=== PATIENT | male | born 1965 | race Native Hawaiian/Other Pacific Islander ===

== ENCOUNTER 2024-01-05 11:32 | Inpatient (IN) | payer OTHER ==
[2024-01-05 12:15] VITALS: BMI 31.8
[2024-01-05] MEDS ORDERED: MAG HYDROX/AL HYDROX/SIMETH 30 ML UNIT-DOSE CUP PO PRN (14:54)
[2024-01-05] MEDS ORDERED: POLYETHYLENE GLYCOL (HEALTHYLAX) 3350 17 GM PACKET PO PRN (14:54)
[2024-01-05] MEDS ORDERED: NALOXONE (NARCAN) HCL 4 MG/0.1 ML SPRAY NS PRN (14:54)
[2024-01-05] MEDS ORDERED: BENZOCAINE/MENTHOL (CHLORASEPTIC ) LOZENGE MM PRN (14:54)
[2024-01-05] MEDS ORDERED: ONDANSETRON *ODT* 4 MG TABLET SL PRN (14:54)
[2024-01-05] MEDS ORDERED: MAGNESIUM HYDROX 2400MG/30ML ORAL SUSPENSION 30 ML CUP PO PRN (14:54)
[2024-01-05] MEDS ORDERED: IBUPROFEN 400 MG TABLET (FP) PO PRN (14:54)
[2024-01-05] MEDS ORDERED: guaiFENesin 600 MG TABLET.ER (FP) PO PRN (14:54)
[2024-01-05] MEDS ORDERED: NALOXONE HCL 0.4 MG/ML VIAL IM PRN (14:54)
[2024-01-05] MEDS ORDERED: IBUPROFEN 600 MG TABLET (FP) PO PRN (14:54)
[2024-01-05] MEDS ORDERED: BISMUTH SUBSALICYLATE 524 MG/30 ML PO PRN (14:54)
[2024-01-05] MEDS ORDERED: LOPERAMIDE HCL 2 MG CAPSULE PO PRN (14:54)
[2024-01-05] MEDS ORDERED: BENZONATATE 200 MG CAPSULE PO PRN (14:54)
[2024-01-05] MEDS ORDERED: DICYCLOMINE HCL 10 MG CAPSULE PO PRN (14:54)
[2024-01-05] MEDS ORDERED: cloNIDine HCL 0.1 MG TABLET PO PRN (14:59)
[2024-01-05] MEDS ORDERED: ALBUTEROL SO4 HFA INHALER IH PRN (15:02)
[2024-01-05] MEDS: methaDONE HCL 10 MG TABLET (FOR DETOX USE ONLY) PO ONE (15:25)
[2024-01-05] MEDS: chlordiazePOXIDE HCL 25 MG CAPSULE PO PRN (18:02)
[2024-01-05] MEDS: chlordiazePOXIDE HCL 25 MG CAPSULE PO SCH (18:02)
[2024-01-05] MEDS: THIAMINE 100 MG TABLET PO SCH (22:55)
[2024-01-05] MEDS: MELATONIN 5 MG TABLETS PO SCH (23:05)
[2024-01-06] MEDS: LEVOTHYROXINE NA 125 MCG TABLET (FP) PO SCH (06:26)
[2024-01-06] MEDS ORDERED: CELECOXIB 100 MG CAPSULE PO PRN (09:26)
[2024-01-06] MEDS ORDERED: ALBUTEROL SO4 HFA INHALER IH PRN (09:26)
[2024-01-06] MEDS: PRENATAL VITAMINS W/ FOLIC ACID TABLET (FP) PO SCH (10:36)
[2024-01-06] MEDS: NICOTINE 21 MG/24 HOURS TOPICAL PATCH TD SCH (10:36)
[2024-01-06 10:42] LABS: HEMATOCRIT 30.5 % (35.4-49); HEMOGLOBIN 10.4 GM/dL (11.7-16.9); MCH 30.6 pg (25.7-33.7); MCHC 34.2 g/dl (32.0-35.9); MEAN CELL VOLUME 89.4 fl (80-96); MEAN PLT VOLUME 7.3 fl (7.5-11.1); PLATELET COUNT 331 10^3/uL (134-434); RBC 3.41 M/mm3 (4.00-5.60); RDW 16.4 % (11.9-15.9); WHITE BLOOD COUNT 7.3 K/mm3 (4.0-10.0)
[2024-01-06 10:46] LABS: POTASSIUM 4.7 mmol/L (3.5-5.1)
[2024-01-06 10:52] LABS: ALBUMIN 2.6 g/dl (3.4-5.0); BLOOD UREA NITROGEN 12.4 mg/dL (7-18); CALCIUM 8.4 mg/dL (8.5-10.1)
[2024-01-06 10:55] LABS: CREATININE 0.9 mg/dL (0.55-1.3)
[2024-01-06 10:57] LABS: BILIRUBIN,TOTAL 0.3 mg/dL (0.2-1); TOT PROT 6.6 g/dl (6.4-8.2)
[2024-01-06] MEDS: TIOTROPIUM BROMIDE 2.5 MCG (SPIRIVA) RESPIMAT INHALER IH SCH (11:23)
[2024-01-06] MEDS: GABAPENTIN 100 MG CAPSULE PO SCH (13:26)
[2024-01-06] MEDS: RIFAXIMIN 550 MG TABLET PO SCH (22:53)
[2024-01-07] MEDS: ACETAMINOPHEN 325 MG TABLET (FP) PO PRN (02:27)
[2024-01-07] MEDS: hydrOXYzine PAMOATE 25 MG CAPSULE (FP) PO PRN (02:27)
[2024-01-07] MEDS: METHOCARBAMOL 500 MG TABLET PO PRN (02:27)
[2024-01-07] MEDS: chlordiazePOXIDE HCL 25 MG CAPSULE PO SCH (05:47)
[2024-01-07] MEDS: CELECOXIB 100 MG CAPSULE PO PRN (09:34)
[2024-01-07] MEDS: FUROSEMIDE 40 MG TABLET (FP) PO SCH (09:34)
[2024-01-07] MEDS ORDERED: methaDONE HCL 10 MG TABLET (FOR DETOX USE ONLY) PO ONE (10:00)
[2024-01-07] MEDS ORDERED: methaDONE HCL 10 MG TABLET PO ONE (10:00)
[2024-01-07] MEDS: BACITRACIN 0.9 GM PACKET TP ONE (13:38)
[2024-01-07] MEDS: LACTULOSE 20 GM/30 ML UDC (FOR ORAL USE ONLY) PO SCH (18:10)
[2024-01-07] MEDS: traZODone HCL 50 MG TABLET (FP) PO SCH (22:42)
[2024-01-07] MEDS: BACITRACIN 0.9 GM PACKET TP SCH (22:43)
[2024-01-08] MEDS ORDERED: chlordiazePOXIDE HCL 10 MG CAPSULE PO PRN
[2024-01-08] MEDS: chlordiazePOXIDE HCL 10 MG CAPSULE PO SCH (05:44)
[2024-01-08] MEDS ORDERED: methaDONE HCL 10 MG TABLET PO ONE ×2 (10:00)
[2024-01-09] MEDS: chlordiazePOXIDE HCL 10 MG CAPSULE PO SCH (06:00)
[2024-01-09] MEDS: LEVOTHYROXINE 25 MCG, LEVOTHYROXINE 100 MCG PO SCH (06:18)
[2024-01-09] MEDS ORDERED: methaDONE HCL 10 MG TABLET (FOR DETOX USE ONLY) PO ONE (10:00)
[2024-01-09] MEDS ORDERED: methaDONE HCL 10 MG TABLET PO ONE (10:00)
[2024-01-09 18:30] VITALS: BP 112/68; PULSE 98; RESP 17; TEMP 97.8
[2024-01-10] MEDS ORDERED: chlordiazePOXIDE HCL 10 MG CAPSULE PO ONE (05:00)
[2024-01-10] MEDS ORDERED: methaDONE HCL 10 MG TABLET PO ONE (10:00)
== END 2024-01-10 01:53 | disposition short-term general hospital (02) | DRG 897 ==
LOC: YASAS 11:32 → Y6N 14:16
PROVIDERS: ADMIT Allergy & Immunology; ATTEND Surgery
PROC: HZ2ZZZZ Detoxification Services for Substance Abuse Treatment (ICD-10-PCS; principal; 2024-01-05)
DX: F11.23 Opioid dependence with withdrawal (principal); F14.20 Cocaine dependence, uncomplicated; Z59.00 Homelessness unspecified; F10.230 Alcohol dependence with withdrawal, uncomplicated; F12.20 Cannabis dependence, uncomplicated; F17.210 Nicotine dependence, cigarettes, uncomplicated; F43.10 Post-traumatic stress disorder, unspecified; F25.1 Schizoaffective disorder, depressive type; I25.10 Atherosclerotic heart disease of native coronary artery without angina pectoris; I25.2 Old myocardial infarction; J44.9 Chronic obstructive pulmonary disease, unspecified; E03.9 Hypothyroidism, unspecified; R42 Dizziness and giddiness; G56.01 Carpal tunnel syndrome, right upper limb; M91.10 Juvenile osteochondrosis of head of femur [Legg-Calve-Perthes], unspecified leg; W18.39XA Other fall on same level, initial encounter; Y93.89 Activity, other specified; Y92.238 Other place in hospital as the place of occurrence of the external cause; Z88.0 Allergy status to penicillin; Z88.2 Allergy status to sulfonamides; Z95.5 Presence of coronary angioplasty implant and graft
CPT/HCPCS: 36415; 80053; 80305; 80307; 82140; 82962; 85027; 86780; 93005; 93010

== ENCOUNTER 2024-01-09 20:25 | Inpatient (IN) | payer OTHER ==
[2024-01-09 21:26] LABS: HEMATOCRIT 31.6 % (35.4-49); HEMOGLOBIN 10.7 GM/dL (11.7-16.9); MCH 30.1 pg (25.7-33.7); MCHC 33.7 g/dl (32.0-35.9); MEAN CELL VOLUME 89.2 fl (80-96); MEAN PLT VOLUME 6.9 fl (7.5-11.1); PLATELET COUNT 473 10^3/uL (134-434); RBC 3.54 M/mm3 (4.00-5.60); RDW 16.6 % (11.9-15.9); WHITE BLOOD COUNT 10.1 K/mm3 (4.0-10.0)
[2024-01-09 21:48] LABS: POTASSIUM 4.6 mmol/L (3.5-5.1)
[2024-01-09 21:50] LABS: ALBUMIN 2.9 g/dl (3.4-5.0); CALCIUM 8.7 mg/dL (8.5-10.1)
[2024-01-09 21:53] LABS: CREATININE 1.6 mg/dL (0.55-1.3)
[2024-01-09 21:55] LABS: BILIRUBIN,TOTAL 0.2 mg/dL (0.2-1); N-TERMINAL BNP 98.8 pg/ml (5-125); TOT PROT 7.8 g/dl (6.4-8.2)
[2024-01-09 22:12] LABS: PLATELET ESTIMATE SLT INCREASE
[2024-01-09] MEDS ORDERED: MEROPENEM 1 GM VIAL (RESTRICTED TO ID) IVPB ONE (22:33)
[2024-01-09] MEDS ORDERED: ALBUTEROL SO4 2.5/IPRATROPIUM 0.5 INH SOL 3 ML VIAL.NEB. NEB ONE (22:33)
[2024-01-09] MEDS ORDERED: methylPREDNISolone NA SUCC 125 MG/2 ML VIAL ONE (22:34)
[2024-01-09] MEDS: MEROPENEM 1 GM in DEXTROSE 5%-WATER 100 ML IVPB ONE (22:48)
[2024-01-09] MEDS: methylPREDNISolone NA SUCC 125 MG/2 ML VIAL IVPB ONE (22:48)
[2024-01-09] MEDS: ALBUTEROL SO4 2.5/IPRATROPIUM 0.5 INH SOL 3 ML VIAL.NEB. NEB ONE (22:48)
[2024-01-09 22:59] LABS: ERYTHROCYTE SEDIMENTATION RATE 90 mm/hr (0-20)
[2024-01-09] MEDS ORDERED: VANCOMYCIN 1 GRAM (PRE-DOCKED) 1,000 MG/250 ML BAG IVPB ONE (23:34)
[2024-01-09] MEDS: VANCOMYCIN 1 GM PREMIX - 1 GM/200 ML BAG IVPB ONE (23:56)
[2024-01-10 00:04] LABS: PH,URINE 5.5 (5.0-8.0); URINE APPEARANCE CLEAR; URINE BILIRUBIN NEGATIVE (NEGATIVE); URINE COLOR YELLOW; URINE GLUCOSE (UA) NEGATIVE (NEGATIVE); URINE KETONE NEGATIVE (NEGATIVE); URINE LEUK ESTERASE NEGATIVE (NEGATIVE); URINE NITRITE NEGATIVE (NEGATIVE); URINE PROTEIN NEGATIVE (NEGATIVE); URINE UROBILINOGEN 0.2 mg/dL (0.2-1.0)
[2024-01-10] MEDS ORDERED: LORazepam 1 MG TABLET PO PRN (03:43)
[2024-01-10] MEDS ORDERED: ALBUTEROL SO4 HFA INHALER IH PRN (03:53)
[2024-01-10] MEDS ORDERED: hydrOXYzine PAMOATE 25 MG CAPSULE (FP) PO ONE (05:01)
[2024-01-10] MEDS: VANCOMYCIN/WATER 1250 MG 1,250 MG/250 ML BAG IVPB SCH (05:06)
[2024-01-10] MEDS: LEVOTHYROXINE NA 125 MCG TABLET (FP) PO SCH (05:59)
[2024-01-10] MEDS: hydrOXYzine PAMOATE 50 MG CAPSULE (FP) PO SCH (06:00)
[2024-01-10] MEDS: GABAPENTIN 100 MG CAPSULE PO SCH (06:00)
[2024-01-10] MEDS: LEVALBUTEROL HCL 0.63 MG/3 ML VIAL.NEB. IH SCH (09:00)
[2024-01-10 09:33] LABS: PH,URINE 5.5 (5.0-8.0); URINE APPEARANCE CLEAR; URINE BILIRUBIN NEGATIVE (NEGATIVE); URINE COLOR YELLOW; URINE GLUCOSE (UA) NEGATIVE (NEGATIVE); URINE KETONE NEGATIVE (NEGATIVE); URINE LEUK ESTERASE NEGATIVE (NEGATIVE); URINE NITRITE NEGATIVE (NEGATIVE); URINE PROTEIN NEGATIVE (NEGATIVE); URINE UROBILINOGEN 0.2 mg/dL (0.2-1.0)
[2024-01-10 09:34] LABS: BASO % 0.1 % (0-2.0); EOS % 0.2 % (0-4.5); HEMATOCRIT 30.6 % (35.4-49); LYMPH % 7.1 % (8-40); MCH 29.4 pg (25.7-33.7); MCHC 32.7 g/dl (32.0-35.9); NEUT % 90.6 % (42.8-82.8); PLATELET COUNT 479 10^3/uL (134-434); RDW 16.4 % (11.9-15.9); WHITE BLOOD COUNT 13.9 K/mm3 (4.0-10.0)
[2024-01-10] MEDS: methylPREDNISolone NA SUCC 40 MG/1 ML VIAL IVPUSH SCH (09:36)
[2024-01-10] MEDS: MEROPENEM 1 GM in DEXTROSE 5%-WATER 100 ML IVPB SCH (09:36)
[2024-01-10] MEDS: THIAMINE 100 MG TABLET PO SCH (09:41)
[2024-01-10] MEDS: FOLIC ACID 1 MG TABLET (FP) PO SCH (09:41)
[2024-01-10 09:45] LABS: RETICULOCYTES 1.34 % (0.5-1.5)
[2024-01-10] MEDS ORDERED: ENOXAPARIN NA (PORCINE) 40 MG/0.4 ML DISP.SYRIN SQ SCH (10:00)
[2024-01-10 10:20] LABS: POTASSIUM 5.1 mmol/L (3.5-5.1)
[2024-01-10 10:27] LABS: ALBUMIN 2.6 g/dl (3.4-5.0); BLOOD UREA NITROGEN 21.3 mg/dL (7-18); CALCIUM 8.4 mg/dL (8.5-10.1); MAGNESIUM 1.9 mg/dL (1.8-2.4)
[2024-01-10 10:30] LABS: BILIRUBIN,TOTAL 0.2 mg/dL (0.2-1); CREATININE 1.3 mg/dL (0.55-1.3); PHOSPHOROUS 3.3 mg/dL (2.5-4.9); TOT PROT 7.3 g/dl (6.4-8.2)
[2024-01-10] MEDS ORDERED: LORazepam 1 MG TABLET PO SCH (11:00)
[2024-01-10] MEDS: SODIUM CHLORIDE 1,000 ML IV SCH (12:50)
[2024-01-10] MEDS: THIAMINE HCL 200 MG/2 ML VIAL IVPB SCH (12:51)
[2024-01-10] MEDS: LEVOTHYROXINE SODIUM 100 MCG 5 ML VIAL IVPUSH SCH (13:07)
[2024-01-10] MEDS: CLINDAMYCIN 600MG PREMIX IVPB 600 MG/50 ML BAG IVPB SCH (13:07)
[2024-01-10] MEDS: HEPARIN NA (PORCINE) 5,000 UNITS/ML 1ML VIAL SQ SCH (13:09)
[2024-01-10] MEDS: TIOTROPIUM BROMIDE 2.5 MCG (SPIRIVA) RESPIMAT INHALER IH SCH (14:24)
[2024-01-10 16:23] VITALS: BMI 34.9
[2024-01-10] MEDS: BUDESONIDE/FORMETEROL FUMARATE 80/4.5 mcg INHALER IH SCH (18:57)
[2024-01-10] MEDS: hydrOXYzine PAMOATE 25 MG CAPSULE (FP) PO PRN (18:58)
[2024-01-10] MEDS: traZODone HCL 50 MG TABLET (FP) PO PRN (21:12)
[2024-01-11] MEDS ORDERED: VANCOMYCIN/WATER 1250 MG 1,250 MG/250 ML BAG IVPB SCH (04:00)
[2024-01-11] MEDS ORDERED: MEROPENEM 1 GM in DEXTROSE 5%-WATER 100 ML IVPB SCH (10:00)
[2024-01-11 10:31] LABS: HEMATOCRIT 27.3 % (35.4-49); HEMOGLOBIN 9.2 GM/dL (11.7-16.9); MCHC 33.8 g/dl (32.0-35.9); MEAN CELL VOLUME 88.6 fl (80-96); MEAN PLT VOLUME 6.8 fl (7.5-11.1); PLATELET COUNT 505 10^3/uL (134-434); RBC 3.09 M/mm3 (4.00-5.60); RDW 16.6 % (11.9-15.9); WHITE BLOOD COUNT 17.5 K/mm3 (4.0-10.0)
[2024-01-11 10:49] LABS: POTASSIUM 4.6 mmol/L (3.5-5.1)
[2024-01-11 10:58] LABS: CALCIUM 8.8 mg/dL (8.5-10.1)
[2024-01-11 10:59] LABS: BLOOD UREA NITROGEN 20.6 mg/dL (7-18); MAGNESIUM 2.3 mg/dL (1.8-2.4)
[2024-01-11 11:02] LABS: CREATININE 1.1 mg/dL (0.55-1.3); PHOSPHOROUS 2.5 mg/dL (2.5-4.9)
[2024-01-12] MEDS ORDERED: LORazepam 1 MG TABLET PO SCH (05:00)
[2024-01-12 08:54] LABS: HEMATOCRIT 26.6 % (35.4-49); HEMOGLOBIN 9.3 GM/dL (11.7-16.9); MCH 30.8 pg (25.7-33.7); MEAN CELL VOLUME 88.1 fl (80-96); MEAN PLT VOLUME 6.9 fl (7.5-11.1); PLATELET COUNT 537 10^3/uL (134-434); RBC 3.02 M/mm3 (4.00-5.60); RDW 16.6 % (11.9-15.9); WHITE BLOOD COUNT 10.4 K/mm3 (4.0-10.0)
[2024-01-12 09:19] LABS: CALCIUM 8.3 mg/dL (8.5-10.1)
[2024-01-12 09:20] LABS: BLOOD UREA NITROGEN 21.2 mg/dL (7-18); MAGNESIUM 1.9 mg/dL (1.8-2.4)
[2024-01-12 09:24] LABS: PHOSPHOROUS 3.6 mg/dL (2.5-4.9)
[2024-01-12 10:05] VITALS: RESP 18
[2024-01-12] MEDS: LEVOTHYROXINE SODIUM 100 MCG 5 ML VIAL IVPUSH SCH (10:06)
[2024-01-12] MEDS ORDERED: QUEtiapine FUMARATE 25 MG TABLET ONE (22:41)
[2024-01-13] MEDS ORDERED: LORazepam 0.5 MG TABLET PO PRN
[2024-01-13] MEDS ORDERED: LORazepam 0.5 MG TABLET PO SCH (05:00)
[2024-01-13] MEDS: LEVOTHYROXINE NA 200 MCG TABLET PO SCH (08:51)
[2024-01-13 09:16] LABS: HEMATOCRIT 32.3 % (35.4-49); MEAN CELL VOLUME 88.4 fl (80-96); MEAN PLT VOLUME 6.8 fl (7.5-11.1); PLATELET COUNT 641 10^3/uL (134-434); RBC 3.66 M/mm3 (4.00-5.60); RDW 16.7 % (11.9-15.9); WHITE BLOOD COUNT 9.1 K/mm3 (4.0-10.0)
[2024-01-13 09:49] LABS: BLOOD UREA NITROGEN 15.7 mg/dL (7-18); CALCIUM 8.8 mg/dL (8.5-10.1)
[2024-01-13 09:50] LABS: MAGNESIUM 2.2 mg/dL (1.8-2.4)
[2024-01-13 09:53] LABS: PHOSPHOROUS 3.8 mg/dL (2.5-4.9)
[2024-01-13] MEDS: THIAMINE HCL 200 MG/2 ML VIAL IVPB SCH (10:47)
[2024-01-13] MEDS ORDERED: QUEtiapine FUMARATE 25 MG TABLET ONE (14:18)
[2024-01-13] MEDS: QUEtiapine FUMARATE 50 MG TABLET PO PRN (14:19)
[2024-01-14] MEDS ORDERED: LORazepam 0.5 MG TABLET PO ONE (05:00)
[2024-01-14] MEDS: LEVOTHYROXINE NA 100 MCG TABLET (FP) PO SCH (06:20)
[2024-01-14] MEDS ORDERED: QUEtiapine FUMARATE 25 MG TABLET ONE ×2 (08:46→20:07)
[2024-01-14 10:43] LABS: BASO % 0.6 % (0-2.0); EOS % 3.8 % (0-4.5); HEMATOCRIT 33.5 % (35.4-49); HEMOGLOBIN 11.3 GM/dL (11.7-16.9); LYMPH % 23.9 % (8-40); MCHC 33.7 g/dl (32.0-35.9); MONO % 6.2 % (3.8-10.2); NEUT % 65.5 % (42.8-82.8); PLATELET COUNT 626 10^3/uL (134-434); RBC 3.77 M/mm3 (4.00-5.60); RDW 16.6 % (11.9-15.9); WHITE BLOOD COUNT 8.5 K/mm3 (4.0-10.0)
[2024-01-14 10:48] LABS: POTASSIUM 4.3 mmol/L (3.5-5.1)
[2024-01-14 10:54] LABS: CALCIUM 9.1 mg/dL (8.5-10.1)
[2024-01-14 10:55] LABS: BLOOD UREA NITROGEN 13.1 mg/dL (7-18)
[2024-01-14 10:58] LABS: PHOSPHOROUS 3.9 mg/dL (2.5-4.9)
[2024-01-14 12:17] LABS: HEMATOCRIT 33.5 % (35.4-49); HEMOGLOBIN 11.1 GM/dL (11.7-16.9); MCH 29.6 pg (25.7-33.7); MCHC 33.3 g/dl (32.0-35.9); MEAN CELL VOLUME 88.9 fl (80-96); MEAN PLT VOLUME 6.9 fl (7.5-11.1); PLATELET COUNT 635 10^3/uL (134-434); RBC 3.76 M/mm3 (4.00-5.60); RDW 16.6 % (11.9-15.9); WHITE BLOOD COUNT 8.7 K/mm3 (4.0-10.0)
[2024-01-14] MEDS: CLINDAMYCIN HCL 150 MG CAPSULE (FP) PO SCH (17:53)
[2024-01-15] MEDS: THIAMINE 100 MG TABLET PO SCH (09:03)
[2024-01-15] MEDS ORDERED: QUEtiapine FUMARATE 25 MG TABLET ONE ×2 (09:07→22:24)
[2024-01-15] MEDS: ACETAMINOPHEN 325 MG TABLET (FP) PO PRN (12:41)
[2024-01-16 10:26] VITALS: BP 96/62; PULSE 78; TEMP 99
== END 2024-01-16 14:54 | disposition other institution (70) | DRG 897 ==
LOC: JER 20:25 → INTOOBSV 23:25 → JERBED 23:25 → J5S 01-10 01:38 → OBSVTOIN 01-10 10:48
PROVIDERS: ADMIT Internal Medicine; ATTEND Internal Medicine
DX: F10.26 Alcohol dependence with alcohol-induced persisting amnestic disorder (principal); L03.115 Cellulitis of right lower limb; N17.9 Acute kidney failure, unspecified; L03.116 Cellulitis of left lower limb; F10.239 Alcohol dependence with withdrawal, unspecified; R55 Syncope and collapse; F12.90 Cannabis use, unspecified, uncomplicated; F14.90 Cocaine use, unspecified, uncomplicated; J45.909 Unspecified asthma, uncomplicated; I25.10 Atherosclerotic heart disease of native coronary artery without angina pectoris; J44.9 Chronic obstructive pulmonary disease, unspecified; E03.9 Hypothyroidism, unspecified; F43.10 Post-traumatic stress disorder, unspecified; G56.03 Carpal tunnel syndrome, bilateral upper limbs; F19.10 Other psychoactive substance abuse, uncomplicated; Z91.148 Patient's other noncompliance with medication regimen for other reason; W18.30XA Fall on same level, unspecified, initial encounter; Y92.89 Other specified places as the place of occurrence of the external cause; Y99.9 Unspecified external cause status
CPT/HCPCS: 36415; 70450-TC; 71045-TC-FY; 76775-TC; 80048; 80053; 80061; 81003; 82550; 82553; 82728; 83540; 83550; 83735; 83880; 84100; 84439; 84443; 84466; 84484; 85025; 85027; 85045; 85651; 86140; 87081; 87086; 93005; 93010; 93306-TC; 93970-TC; 94150; 97116-GP; 97161-GP; 99285-25; G0378; J1644

== ENCOUNTER 2024-01-16 16:09 | Inpatient (IN) | payer OTHER ==
[2024-01-16 18:34] VITALS: BMI 29.0
[2024-01-16] MEDS ORDERED: NALOXONE (NARCAN) HCL 4 MG/0.1 ML SPRAY NS PRN (18:40)
[2024-01-16] MEDS ORDERED: LOPERAMIDE HCL 2 MG CAPSULE PO PRN (18:40)
[2024-01-16] MEDS ORDERED: POLYETHYLENE GLYCOL (HEALTHYLAX) 3350 17 GM PACKET PO PRN (18:40)
[2024-01-16] MEDS ORDERED: BENZOCAINE/MENTHOL (CHLORASEPTIC ) LOZENGE MM PRN (18:40)
[2024-01-16] MEDS ORDERED: MAG HYDROX/AL HYDROX/SIMETH 30 ML UNIT-DOSE CUP PO PRN (18:40)
[2024-01-16] MEDS ORDERED: P-EPHED 60MG/TRIPROLIDI 2.5MG TABLET PO PRN (18:40)
[2024-01-16] MEDS ORDERED: NALOXONE HCL 0.4 MG/ML VIAL IVPUSH PRN (18:40)
[2024-01-16] MEDS ORDERED: guaiFENesin 600 MG TABLET.ER (FP) PO PRN (18:40)
[2024-01-16] MEDS ORDERED: DOCUSATE SODIUM 100 MG CAPSULE (FP) PO PRN (18:40)
[2024-01-16] MEDS ORDERED: IBUPROFEN 400 MG TABLET (FP) PO PRN (18:40)
[2024-01-16] MEDS ORDERED: MAGNESIUM HYDROX 2400MG/30ML ORAL SUSPENSION 30 ML CUP PO PRN (18:40)
[2024-01-16] MEDS ORDERED: BISACODYL 5 MG TABLET.DR (FP) PO PRN (18:40)
[2024-01-16] MEDS ORDERED: BENZONATATE 200 MG CAPSULE PO PRN (18:40)
[2024-01-16] MEDS ORDERED: ALBUTEROL SO4 HFA INHALER IH PRN (18:41)
[2024-01-16] MEDS: QUEtiapine FUMARATE 50 MG TABLET PO SCH (20:49)
[2024-01-16] MEDS: GABAPENTIN 100 MG CAPSULE PO ONE (20:49)
[2024-01-16] MEDS: BUDESONIDE/FORMETEROL FUMARATE 80/4.5 mcg INHALER IH SCH (22:06)
[2024-01-16] MEDS: MELATONIN 5 MG TABLETS PO SCH (22:07)
[2024-01-16] MEDS: CLINDAMYCIN HCL 150 MG CAPSULE (FP) PO SCH (22:07)
[2024-01-16] MEDS: traZODone HCL 50 MG TABLET (FP) PO ONE (22:07)
[2024-01-16] MEDS: THIAMINE 100 MG TABLET PO SCH (23:47)
[2024-01-17] MEDS: IBUPROFEN 600 MG TABLET (FP) PO PRN (05:34)
[2024-01-17] MEDS: LEVOTHYROXINE NA 100 MCG TABLET (FP) PO SCH (06:15)
[2024-01-17] MEDS: PRENATAL VITAMINS W/ FOLIC ACID TABLET (FP) PO SCH (09:59)
[2024-01-17] MEDS: CELECOXIB 100 MG CAPSULE PO PRN (10:01)
[2024-01-17] MEDS: risperiDONE 1 MG TABLET PO SCH (12:32)
[2024-01-17] MEDS: hydrOXYzine PAMOATE 25 MG CAPSULE (FP) PO PRN (20:01)
[2024-01-17] MEDS: traZODone HCL 50 MG TABLET (FP) PO SCH (21:05)
[2024-01-18] MEDS: FERROUS SO4 325 MG TABLET (FP) PO SCH (10:42)
[2024-01-18] MEDS: TIOTROPIUM BROMIDE 2.5 MCG (SPIRIVA) RESPIMAT INHALER IH SCH (16:11)
[2024-01-18] MEDS: METHOCARBAMOL 500 MG TABLET PO PRN (18:31)
[2024-01-19] MEDS: traZODone HCL 50 MG TABLET (FP) PO SCH (22:07)
[2024-01-19] MEDS: risperiDONE 1 MG TABLET PO SCH (22:07)
[2024-01-22] MEDS: NICOTINE POLACRILEX 2 MG GUM BUC PRN (06:23)
[2024-01-22] MEDS: traZODone HCL 100 MG TABLET (FP) PO SCH (21:26)
[2024-01-24] MEDS: hydrOXYzine PAMOATE 25 MG CAPSULE (FP) PO ONE (16:35)
[2024-01-25 12:07] LABS: BASO % 0.9 % (0-2.0); EOS % 5.3 % (0-4.5); HEMATOCRIT 33.6 % (35.4-49); HEMOGLOBIN 11.3 GM/dL (11.7-16.9); LYMPH % 26.1 % (8-40); MCH 29.8 pg (25.7-33.7); MCHC 33.7 g/dl (32.0-35.9); MEAN CELL VOLUME 88.4 fl (80-96); MEAN PLT VOLUME 7.6 fl (7.5-11.1); MONO % 8.9 % (3.8-10.2); NEUT % 58.8 % (42.8-82.8); PLATELET COUNT 431 10^3/uL (134-434); RBC 3.79 M/mm3 (4.00-5.60); RDW 16.9 % (11.9-15.9); WHITE BLOOD COUNT 8.9 K/mm3 (4.0-10.0)
[2024-01-25] MEDS: PRAZOSIN HCL 1 MG CAPSULE PO SCH (22:04)
[2024-01-25] MEDS: SUVOREXANT 10 MG TABLET PO PRN (22:04)
[2024-01-27] MEDS: ACETAMINOPHEN 325 MG TABLET (FP) PO PRN (06:26)
[2024-01-27] MEDS: SUVOREXANT 10 MG TABLET PO PRN (21:36)
[2024-01-29] MEDS: hydrOXYzine PAMOATE 25 MG CAPSULE (FP) PO PRN (10:20)
[2024-01-29] MEDS: PRAZOSIN HCL 1 MG CAPSULE PO SCH (21:31)
[2024-01-29] MEDS: SUVOREXANT 15 MG TABLET PO PRN (22:00)
[2024-01-30] MEDS: hydrOXYzine PAMOATE 25 MG CAPSULE (FP) PO ONE (18:22)
[2024-01-31] MEDS: hydrOXYzine PAMOATE 50 MG CAPSULE (FP) PO PRN (19:20)
[2024-02-01] MEDS ORDERED: SUVOREXANT 15 MG TABLET PO PRN (22:00)
[2024-02-04] MEDS: NICOTINE POLACRILEX 2 MG LOZENGE BC PRN (11:28)
[2024-02-04] MEDS: SUVOREXANT 15 MG TABLET PO PRN (21:09)
[2024-02-05] MEDS: BUPRENORPHINE/NALOXONE 2 MG/0.5 MG FILM PACKET SL SCH (12:15)
[2024-02-05] MEDS: NICOTINE 21 MG/24 HOURS TOPICAL PATCH TD SCH (12:15)
[2024-02-05] MEDS: GABAPENTIN 100 MG CAPSULE PO SCH (13:02)
[2024-02-06 11:14] LABS: POTASSIUM 4.1 mmol/L (3.5-5.1)
[2024-02-06 11:20] LABS: ALBUMIN 3.6 g/dl (3.4-5.0); BLOOD UREA NITROGEN 22.4 mg/dL (7-18); MAGNESIUM 1.6 mg/dL (1.8-2.4)
[2024-02-06 11:23] LABS: CREATININE 1.1 mg/dL (0.55-1.3)
[2024-02-06 11:25] LABS: BILIRUBIN,TOTAL 0.3 mg/dL (0.2-1); TOT PROT 7.7 g/dl (6.4-8.2)
[2024-02-07] MEDS: BUPRENORPHINE/NALOXONE 2 MG/0.5 MG FILM PACKET SL SCH (17:56)
[2024-02-07] MEDS: DOXYCYCLINE HYCLATE 100 MG TABLET PO SCH (17:56)
[2024-02-07] MEDS: GABAPENTIN 100 MG CAPSULE PO SCH (21:12)
[2024-02-07] MEDS: MAGNESIUM OXIDE 400 MG TABLET (FP) PO SCH (21:14)
[2024-02-08] MEDS: CHOLECALCIFEROL (VIT D3) 5000 UNITS (125 MCG) CAP PO SCH (12:10)
[2024-02-08] MEDS ORDERED: METHYL SALICYLATE/MENTHOL 30 GM TUBE TP PRN (15:16)
[2024-02-08] MEDS: BUDESONIDE/FORMETEROL FUMARATE 80/4.5 mcg INHALER IH PRN (21:09)
[2024-02-08] MEDS: LIDOCAINE PATCH REMOVAL MC SCH (21:10)
[2024-02-09] MEDS: LIDOCAINE 4% PATCH TP SCH (09:58)
[2024-02-10] MEDS: ACETAMINOPHEN 500 MG TABLET (FP) PO PRN (13:05)
[2024-02-10] MEDS: SUVOREXANT 15 MG TABLET PO PRN (22:20)
[2024-02-11] MEDS: GABAPENTIN 100 MG CAPSULE PO SCH (14:52)
[2024-02-11] MEDS: BUPRENORPHINE/NALOXONE 4 MG/1 MG FILM PACKET SL SCH (14:53)
[2024-02-13] MEDS: ACAMPROSATE CALCIUM 333 MG TABLET.DR PO SCH (06:26)
[2024-02-13 06:38] VITALS: BP 135/70; PULSE 112; RESP 16; TEMP 97.4
== END 2024-02-13 10:45 | disposition home or self-care (01) | DRG 895 ==
LOC: YASAS 16:09 → UNDOADMIN 20:09 → Y3NR 20:09 → Y3E 01-17 11:14
PROVIDERS: ADMIT Allergy & Immunology; ATTEND Psychiatry & Neurology Pain Medicine
PROC: HZ42ZZZ Group Counseling for Substance Abuse Treatment, Cognitive-Behavioral (ICD-10-PCS; principal; 2024-01-16)
DX: F11.20 Opioid dependence, uncomplicated (principal); F14.20 Cocaine dependence, uncomplicated; F19.282 Other psychoactive substance dependence with psychoactive substance-induced sleep disorder; F19.280 Other psychoactive substance dependence with psychoactive substance-induced anxiety disorder; L03.115 Cellulitis of right lower limb; Z59.00 Homelessness unspecified; F10.20 Alcohol dependence, uncomplicated; F12.20 Cannabis dependence, uncomplicated; F17.210 Nicotine dependence, cigarettes, uncomplicated; F19.24 Other psychoactive substance dependence with psychoactive substance-induced mood disorder; F32.A Depression, unspecified; F43.10 Post-traumatic stress disorder, unspecified; E03.9 Hypothyroidism, unspecified; J44.9 Chronic obstructive pulmonary disease, unspecified; K04.7 Periapical abscess without sinus; M25.552 Pain in left hip; M54.50 Low back pain, unspecified; G89.29 Other chronic pain; Z87.820 Personal history of traumatic brain injury; Z91.85 Personal history of military service; Z99.89 Dependence on other enabling machines and devices; Z88.0 Allergy status to penicillin; Z88.2 Allergy status to sulfonamides
CPT/HCPCS: 36415; 80053; 80305; 80307; 82140; 82652; 83735; 84439; 84443; 84481; 85025; 87811